=== PATIENT | male | born 1965 | race Caucasian/White ===

== ENCOUNTER 2023-06-01 10:10 | Observation (INO) | payer BC ==
[~2023-06-01] VITALS: Ht 193 cm; Wt 95.7 kg
[2023-06-01] MEDS ORDERED: NS 500 ML IV ONE (10:55)
[2023-06-01] MEDS ORDERED: MORPHINE 2 MG/ML 1ML VIAL IV PRN ×4 (10:55→13:55)
[2023-06-01 11:19] LABS: BASO # 0.1 10^3/uL (0.0-0.2); BASO % 0.4 % (0.0-1.0); EOS % 0.2 % (0.0-3.0); HEMATOCRIT 41.4 % (42.0-52.0); HEMOGLOBIN 14.3 g/dl (13.5-17.5); LYMPH # 1.4 10^3/uL (1.5-5.0); LYMPH % 8.8 % (24.0-44.0); MEAN CORPUSCULAR HEMOGLOBIN 33.1 pg (27.0-33.0); MEAN CORPUSCULAR HGB CONC 34.5 g/dl (32.0-36.5); MEAN CORPUSCULAR VOLUME 95.8 fl (80.0-96.0); MONO # 0.8 10^3/uL (0.0-0.8); NEUTROPHILS # 13.1 10^3/uL (1.5-8.5); NEUTROPHILS % 84.8 % (36.0-66.0); PLATELET COUNT, AUTOMATED 205 10^3/uL (150-450); RED BLOOD COUNT 4.32 10^6/uL (4.30-6.10); WHITE BLOOD COUNT 15.4 10^3/uL (4.0-10.0)
[2023-06-01 11:31] LABS: PROTHROMBIN TIME 31.6 SECONDS (12.5-14.5)
[2023-06-01 11:32] LABS: PARTIAL THROMBOPLASTIN TIME 32.6 SECONDS (24.8-34.2)
[2023-06-01 11:57] LABS: ALBUMIN 4.3 G/DL (3.2-5.2); BILIRUBIN,DIRECT 0.2 MG/DL (<0.4); BILIRUBIN,TOTAL 0.5 MG/DL (0.3-1.2); TOTAL PROTEIN 6.7 G/DL (5.7-8.2)
[2023-06-01 12:29] LABS: CK-MB VALUE MASS 2.3 NG/ML (<3.6)
[2023-06-01 12:31] LABS: MB/CK RELATIVE INDEX 0.72 (< OR =4)
[2023-06-01 12:48] LABS: CK-MB VALUE MASS 2.9 NG/ML (<3.6)
[2023-06-01 12:53] LABS: MB/CK RELATIVE INDEX 0.9 (< OR =4)
[2023-06-01 13:16] LABS: FREE T4 0.96 NG/DL (0.89-1.76); THYROID STIMULATING HORMONE 2.531 uIU/ML (0.55-4.78)
[2023-06-01] MEDS ORDERED: ONDANSETRON 4MG 2ML VIAL IV PRN (13:55)
[2023-06-01] MEDS ORDERED: MED REC IN PROGRESS XX SCH (14:25)
[2023-06-01] MEDS ORDERED: METO50TA7 PO (14:29)
[2023-06-01] MEDS ORDERED: LOSA50TA28 PO (14:29)
[2023-06-01] MEDS ORDERED: WARF-21 PO (14:29)
[2023-06-01] MEDS ORDERED: HOME MED LIST COMPLETE! XX SCH (14:30)
[2023-06-01] MEDS: AMPICILLIN SOD/SULBACTAM SOD 3 GM in D5W MINI-BAG PLUS 100 ML IV SCH ×2 (15:00→20:51)
[2023-06-01 15:43] VITALS: BP 163/84; TEMP 97.8; O2SAT 99
[2023-06-01 16:00] VITALS: O2SAT 98
[2023-06-01] MEDS: NS 1,000 ML IV SCH (16:55)
[2023-06-01 17:00] VITALS: O2SAT 98
[2023-06-01] MEDS: KETOROLAC 30 MG/ML 1ML VIAL IV PRN (17:00)
[2023-06-01 18:00] VITALS: O2SAT 98
[2023-06-01 20:07] VITALS: BP 167/81; TEMP 97.2; O2SAT 98
[2023-06-01] MEDS: METOPROLOL TART 25 MG TABLET PO SCH (20:50)
[2023-06-01] MEDS: PANTOPRAZOLE 40MG VIAL IV SCH (20:51)
[2023-06-01] MEDS ORDERED: LOSARTAN 50MG TABLET PO SCH (21:00)
[2023-06-01 23:29] VITALS: BP 158/79; TEMP 97.1; O2SAT 97
[2023-06-02] MEDS: NS 1,000 ML IV SCH ×2 (01:39→10:04)
[2023-06-02] MEDS: AMPICILLIN SOD/SULBACTAM SOD 3 GM in D5W MINI-BAG PLUS 100 ML IV SCH ×3 (03:00→15:00)
[2023-06-02 03:55] VITALS: BP 143/71; TEMP 97.7; O2SAT 97
[2023-06-02 08:00] VITALS: BP 160/72; TEMP 97.6; O2SAT 100
[2023-06-02] MEDS: KETOROLAC 30 MG/ML 1ML VIAL IV PRN ×2 (08:03→18:38)
[2023-06-02 10:04] VITALS: BP 160/72
[2023-06-02] MEDS: METOPROLOL TART 25 MG TABLET PO SCH (10:04)
[2023-06-02] MEDS: PANTOPRAZOLE 40MG VIAL IV SCH (10:04)
[2023-06-02 11:35] VITALS: BP 144/75; TEMP 97.6; O2SAT 94
[2023-06-02] MEDS ORDERED: propofoL 200 MG/20 ML VIAL As Ordered ONE (13:45)
[2023-06-02] MEDS ORDERED: fentaNYL 100 MCG/2 ML INJECTION As Ordered ONE ×3 (13:45→17:32)
[2023-06-02] MEDS ORDERED: LIDOCAINE 2% 100MG/5ML SDV (FOR ANES.) As Ordered ONE (13:45)
[2023-06-02] MEDS ORDERED: ONDANSETRON 4MG 2ML VIAL As Ordered ONE (13:45)
[2023-06-02] MEDS ORDERED: MIDAZOLAM INJ 2MG/2ML VIAL As Ordered ONE (13:45)
[2023-06-02] MEDS ORDERED: ceFAZolin 2 GM/D5W 50 ML IV BAG As Ordered ONE (15:59)
[2023-06-02] MEDS ORDERED: ACETAMINOPHEN 1000MG 100ML IV BAG As Ordered ONE (16:10)
[2023-06-02] MEDS ORDERED: GLYCOPYRROLATE INJ 0.2 MG/ML 2 ML VIAL As Ordered ONE (16:33)
[2023-06-02] MEDS ORDERED: HYDROMORPHONE HCL 0.5 MG/ 0.5 ML SYRINGE IV PRN (18:00)
[2023-06-02] MEDS ORDERED: oxyCODONE 5MG TAB PO PRN (18:00)
[2023-06-02] MEDS ORDERED: fentaNYL 100 MCG/2 ML INJECTION IV PRN (18:00)
[2023-06-02] MEDS ORDERED: ONDANSETRON 4MG 2ML VIAL IV PRN (18:00)
[2023-06-02] MEDS ORDERED: LR 1,000 ML IV SCH (18:00)
[2023-06-02] MEDS ORDERED: METOCLOPRAMIDE INJ 10MG/2ML VIAL IV PRN (18:00)
[2023-06-02] MEDS ORDERED: OXYC-517 PO (18:02)
[2023-06-02 18:44] VITALS: BP 167/84; TEMP 97.4; O2SAT 96
== END 2023-06-02 20:10 | disposition home or self-care (01) ==
LOC: M ED 10:10 → M ED INP 13:52 → ENRESERV 15:06 → M PCU 15:33
PROVIDERS: ADMIT Surgery; ATTEND Surgery
DX: S52.572A Other intraarticular fracture of lower end of left radius, initial encounter for closed fracture (principal); S00.91XA Abrasion of unspecified part of head, initial encounter; S40.212A Abrasion of left shoulder, initial encounter; S80.812A Abrasion, left lower leg, initial encounter; W11.XXXA Fall on and from ladder, initial encounter; Y92.096 Garden or yard of other non-institutional residence as the place of occurrence of the external cause; Y93.H9 Activity, other involving exterior property and land maintenance, building and construction; R00.1 Bradycardia, unspecified; I45.10 Unspecified right bundle-branch block; I10 Essential (primary) hypertension; Z95.2 Presence of prosthetic heart valve; Z79.899 Other long term (current) drug therapy; Z79.01 Long term (current) use of anticoagulants
CPT/HCPCS: 25608; 70450; 71045; 72125; 73090; 73110; 73130; 76000; 80047; 80076; 82550; 82553; 84439; 84443; 84484; 85025; 85610; 85730; 86618; 86850; 86900; 86901; 87635; 93005; 93041; 94760; 96374; 96375; 96376; 99285; C1713; C9113; J0131; J0295; J0690; J1100; J1170; J1885; J2250; J2405; J3010

== ENCOUNTER → 2023-07-21 | Outpatient (CLI) | payer BC ==
[~2023-07-21] MED LIST: LOSA50TA28 PO; METO50TA7 PO; OXYC-517 PO; WARF-21 PO
== END ==
LOC: M SOG 07:58
PROVIDERS: ATTEND Physician Assistant
DX: S52.502A Unspecified fracture of the lower end of left radius, initial encounter for closed fracture (principal)

== ENCOUNTER → 2024-04-06 | Outpatient (REF) | payer BC | LOC: M LAB REF 17:27 | PROVIDERS: ATTEND Podiatrist Foot & Ankle Surgery | DX: M67.472 Ganglion, left ankle and foot (principal) ==